=== PATIENT | female | born 1990 | race African-American/Black ===

== ENCOUNTER 2022-06-26 14:28 | Emergency (ER) | payer OTHER ==
[2022-06-26 14:38] VITALS: RESP 18; BMI 38.9
[2022-06-26] MEDS ORDERED: ACETAMINOPHEN 500 MG TABLET (FP) PO ONE (15:20)
[2022-06-26] MEDS ORDERED: SODIUM CHLORIDE 0.9% 500 ML INFUS.BAG IV ONE ×2 (15:20→17:35)
[2022-06-26] MEDS ORDERED: ACETAMINOPHEN 500 MG TABLET (FP) ONE (15:31)
[2022-06-26 17:33] VITALS: BP 130/77; PULSE 102; TEMP 102
[2022-06-26] MEDS ORDERED: IBUPROFEN 600 MG TABLET (FP) PO ONE ×2 (17:58→17:59)
[2022-06-26] MEDS ORDERED: PENICILLIN G BENZATHINE 1,200,000 UNIT/2 ML PFS IM ONE ×2 (18:30→18:35)
== END 2022-06-26 18:51 | disposition home or self-care (01) ==
LOC: JER 14:28
DX: R07.0 Pain in throat (principal); R53.81 Other malaise; R68.83 Chills (without fever); R00.2 Palpitations; R51.9 Headache, unspecified; J02.0 Streptococcal pharyngitis
CPT/HCPCS: 71046-TC-FY; 84703; 87651; 99284-25